=== PATIENT | female | born 1980 | race Two or more races ===

== ENCOUNTER 2023-03-20 11:43 | Day surgery (SDC) | payer OTHER ==
[~2023-03-20] VITALS: Ht 167.6 cm; Wt 56.7 kg
[2023-03-20] MEDS ORDERED: diphenhydrAMINE 50 MG/ML VIAL ONE (12:31)
[2023-03-20] MEDS ORDERED: fentaNYL citrate 0.05 MG/ML VIAL ONE (12:31)
[2023-03-20] MEDS ORDERED: MIDAZOLAM 2 MG/2 ML VIAL ONE (12:31)
[2023-03-20] MEDS ORDERED: MIDAZOLAM 2 MG/2 ML VIAL IVP ONE (13:15)
[2023-03-20] MEDS ORDERED: diphenhydrAMINE 50 MG/ML VIAL IVP ONE (13:15)
[2023-03-20] MEDS ORDERED: fentaNYL citrate 0.05 MG/ML VIAL IVP ONE (13:15)
== END 2023-03-20 13:19 | disposition home or self-care (01) ==
LOC: MDS 11:43 → MMU 11:44 → MDS 13:19
PROVIDERS: ATTEND Internal Medicine Gastroenterology
DX: R10.13 Epigastric pain (principal); E78.5 Hyperlipidemia, unspecified; Z90.49 Acquired absence of other specified parts of digestive tract
CPT/HCPCS: 43239; 88305; 88312; 88313; 88342; J1200; J2250; J3010